=== PATIENT | male | born 1990 | race Caucasian/White ===

== ENCOUNTER 2016-04-29 09:36 | Emergency (ER) | payer BC, OTHER ==
[2016-04-29 09:44] VITALS: BP 148/83; PULSE 64; RESP 17; TEMP 98.1; O2SAT 96
--- NOTE | 2016-04-29 10:31 | EDPHY ---
H & P Time Seen by Provider: 04/29/16 09:49 HPI/ROS: CHIEF COMPLAINT: Left index finger laceration HISTORY OF PRESENT ILLNESS: 25-year-old [id number] male presents with a laceration to his lateral left index finger from a razor blade. Tetanus is up -to-date. Patient denies numbness or tingling to this finger, denies decreased range of motion or other complaints. Smoking Status: Never smoked Physical Exam: GEN: Awake, alert, oriented, no acute distress RESP: nl resp effort MSK: Full flexion and extension of left index finger at MCP, PIP and DIP joint , 2 point discrimination intact SKIN: 1.5 cm superficial laceration to lateral aspect of left index finger between PIP and MCP joint Constitutional: Initial Vital Signs Temperature (C) 36.7 C 04/29/16 09:42 Heart Rate 64 04/29/16 09:42 Respiratory Rate 17 04/29/16 09:42 Blood Pressure 148/83 H 04/29/16 09:42 O2 Sat (%) 96 04/29/16 09:42 O2 Delivery Mode Room Air Allergies/Adverse Reactions: No Known Allergies Allergy (Verified 04/29/16 09:44) Home Medications: Medication Instructions Recorded NK [No Known Home Meds] 04/29/16 MDM/Departure - MDM Procedures: Procedure: Laceration repair. Verbal consent was obtained from the patient. The 1.5 cm laceration on the left index finger was anesthetized using 1% lidocaine without epinephrine. The wound was carefully irrigated by the emergency department environmental test technician. Next, the wound was prepped and draped in sterile fashion and explored to its base with a gloved finger. There were no deep structures involved. No tendon injury was identified. No vascular injury was identified. No foreign bodies were identified. The wound was repaired with 5.0 Prolene, 4. Simple interrupted sutures. The wound repair was simple. The procedure was performed by myself. Tetanus and antibiotic status were addressed. - Depart Disposition: Home, Routine, Self-Care Clinical Impression: Laceration of left index finger Condition: Good Instructions: Finger Laceration (ED) Additional Instructions: Return to the emergency department in 12-14 days for suture removal, return sooner for any signs of infection. Referrals: OUT OF STATE,. [Primary Care Provider] - As per Instructions
== END 2016-04-29 11:04 | disposition home or self-care (01) ==
PROC: 0HQGXZZ Repair Left Hand Skin, External Approach (ICD-10-PCS; principal; 2016-04-29)
DX: S61.211A Laceration without foreign body of left index finger without damage to nail, initial encounter (principal); W26.8XXA Contact with other sharp object(s), not elsewhere classified, initial encounter